=== PATIENT | male | born 1985 | race African-American/Black ===

== ENCOUNTER 2019-02-07 14:33 | Emergency (ER) | payer OTHER ==
[~2019-02-07] VITALS: Ht 175.3 cm; Wt 79.1 kg
[2019-02-07] MEDS ORDERED: PALI39DI IM (15:10)
[2019-02-07] MEDS ORDERED: BUSP5TAB20 PO (15:10)
[2019-02-07 16:08] VITALS: BP 106/76
== END 2019-02-07 16:43 | disposition home or self-care (01) ==
LOC: EMS 14:34
DX: Z02.89 Encounter for other administrative examinations (principal); F41.9 Anxiety disorder, unspecified; F20.9 Schizophrenia, unspecified; F17.210 Nicotine dependence, cigarettes, uncomplicated; F15.90 Other stimulant use, unspecified, uncomplicated; Z98.890 Other specified postprocedural states; Z79.899 Other long term (current) drug therapy

== ENCOUNTER 2019-08-09 13:41 | Inpatient (IN) | payer OTHER, MEDICAID ==
[~2019-08-09 13:41] MED LIST: BUSP5TAB20 PO; PALI39DI IM
[2019-08-09] MEDS ORDERED: HALOPERIDOL 5 MG TABLET PO PRN (14:15)
[2019-08-09] MEDS ORDERED: LORazepam 2 MG TABLET PO PRN (14:15)
[2019-08-09] MEDS ORDERED: ZOLPIDEM TARTRATE 10 MG TABLET PO PRN (14:15)
[2019-08-09 14:24] VITALS: BP 115/74
[2019-08-09] MEDS ORDERED: BUSP15 PO (14:35)
[2019-08-09] MEDS ORDERED: PALI819S IM (14:35)
[2019-08-09 16:09] VITALS: BP 117/83
[2019-08-10] MEDS ORDERED: LOPERAMIDE HCL 2 MG CAPSULE PO PRN (05:30)
[2019-08-10] MEDS ORDERED: PETROLATUM,WHITE 28 GM JELLY TP PRN (05:30)
[2019-08-10] MEDS ORDERED: CloNIDine HCL 0.1 MG TABLET PO PRN (05:30)
[2019-08-10] MEDS ORDERED: ONDANSETRON HCL 4 MG TABLET PO PRN (05:30)
[2019-08-10] MEDS ORDERED: BACITRACIN 28.4 GM OINTMENT TP PRN (05:30)
[2019-08-10] MEDS ORDERED: BENZOCAINE/MENTHOL LOZENGE MM PRN (05:30)
[2019-08-10] MEDS ORDERED: ACETAMINOPHEN 325 MG TABLET PO PRN (05:30)
[2019-08-10] MEDS ORDERED: MAGNESIUM HYDROXIDE SUSPENSION 30 ML UDCUP PO PRN (05:30)
[2019-08-10] MEDS ORDERED: MAG HYDROX/AL HYDROX/SIMETH ES 30 ML SUSPENSION UDCUP PO PRN (05:30)
[2019-08-10] MEDS ORDERED: IBUPROFEN 600 MG TABLET PO PRN (05:30)
[2019-08-10] MEDS ORDERED: ALBUTEROL SULFATE HFA 90 MCG/PUFF 8 GM INHALER IH PRN (05:30)
[2019-08-10 08:33] VITALS: BP 109/67
[2019-08-10] MEDS ORDERED: DOCUSATE SODIUM 100 MG CAPSULE PO SCH (09:00)
[2019-08-10] MEDS ORDERED: OMEPRAZOLE 20 MG CAPSULE PO SCH (09:00)
[2019-08-10 16:10] VITALS: BP 112/66
[2019-08-11 05:04] VITALS: BP 110/70
[2019-08-11 08:16] VITALS: BP 106/61
[2019-08-11 16:18] VITALS: BP 127/81
[2019-08-12 08:21] VITALS: BP 105/69
== END 2019-08-12 14:55 | disposition home or self-care (01) | DRG 885 ==
LOC: B2S 14:15
PROVIDERS: ADMIT Psychiatry & Neurology Psychiatry; ATTEND Psychiatry & Neurology Psychiatry
DX: F25.9 Schizoaffective disorder, unspecified (principal); F41.9 Anxiety disorder, unspecified; G47.00 Insomnia, unspecified; K59.00 Constipation, unspecified; Z72.0 Tobacco use; Z91.5 Personal history of self-harm; Z88.8 Allergy status to other drugs, medicaments and biological substances; Z56.0 Unemployment, unspecified; Z59.0 Homelessness

== ENCOUNTER 2020-03-31 07:51 | Inpatient (IN) | payer OTHER, MEDICAID ==
[~2020-03-31] VITALS: Ht 180.3 cm; Wt 69.4 kg
[~2020-03-31 07:51] MED LIST changes: -BUSP5TAB20 PO; -PALI39DI IM; +PALI819S IM
[2020-03-31] MEDS ORDERED: LORazepam 2 MG/ML VIAL IM ONE (08:30)
[2020-03-31] MEDS ORDERED: HALOPERIDOL LACTATE 5 MG/ML VIAL IM ONE (08:30)
[2020-03-31 10:25] LABS: COVID AG,FIA SOURCE NASOPHARYNGEAL
[2020-03-31] MEDS ORDERED: ZOLPIDEM TARTRATE 10 MG TABLET PO PRN (10:30)
[2020-03-31] MEDS ORDERED: LORazepam 2 MG TABLET PO PRN (10:30)
[2020-03-31] MEDS ORDERED: HALOPERIDOL 5 MG TABLET PO PRN (10:30)
[2020-03-31 11:13] LABS: BASOPHILS % (AUTO) 0.9 % (0.0-2.0); EOSINOPHILS % (AUTO) 0.1 % (1.0-6.0); HEMATOCRIT 38.8 % (41-53); HEMOGLOBIN 12.7 g/dL (13.5-17.5); LYMPHOCYTES # (AUTO) 2.2 K/uL (1.0-4.8); LYMPHOCYTES % (AUTO) 32.1 % (22.0-44.0); MEAN CORPUSCULAR HEMOGLOBIN 29.5 pg (26.0-34.0); MEAN CORPUSCULAR HGB CONC 32.8 G/dL (31.0-37.0); MEAN CORPUSCULAR VOLUME 90 fL (80-100); MONOCYTES # (AUTO) 0.6 K/uL (0.1-1.0); MONOCYTES % (AUTO) 9.5 % (2.0-9.0); NEUTROPHILS # (AUTO) 3.9 K/uL (1.8-7.7); NEUTROPHILS % (AUTO) 57.4 % (40.0-70.0); PLATELET COUNT (AUTO) 242 K/uL (150-450); RED BLOOD CELL COUNT(AUTO) 4.31 MIL/uL (4.50-5.90); RED CELL DISTRIBUTION WIDTH 12.7 % (11.5-14.5)
[2020-03-31 11:31] LABS: ANION GAP 9 mmol/L (8-16); CALCIUM, TOTAL 9.3 mg/dL (8.8-10.5); CARBON DIOXIDE 28 mmol/L (22-29); CHLORIDE 101 mmol/L (98-107); CREATININE 1.37 mg/dL (0.60-1.30); GLOMERULAR FILTR. RATE CALC > 60 mL/min (>60); GLUCOSE,RANDOM 84 mg/dL (70-110); POTASSIUM 3.8 mmol/L (3.5-5.1); SODIUM SERUM 138 mmol/L (136-145); UREA NITROGEN, BLOOD 10 mg/dL (7-18)
[2020-03-31 11:36] LABS: ALANINE AMINOTRANSFERASE 39 U/L (12-78); ALBUMIN 4.2 g/dL (3.4-5.0); ALKALINE PHOSPHATASE 83 U/L (46-116); ASPARTATE AMINOTRANSFERASE 60 U/L (15-37); BILIRUBIN,TOTAL 1.2 mg/dL (0.1-1.0); TOTAL PROTEIN, SERUM 7.9 g/dL (6.4-8.2)
[2020-03-31 12:51] VITALS: BP 103/69
[2020-03-31] MEDS ORDERED: INFLUENZA VIRUS VACCINE QVS 2020-21 (6MO+)/PF 60 MCG/0.5 ML SYRINGE IM ONE (13:45)
[2020-03-31] MEDS: OLANZapine 5 MG TABLET PO SCH (16:32)
[2020-04-01] MEDS ORDERED: GuaiFENesin/D-METHORPHAN [SUGAR-FREE] 200-20MG/10 ML SYRUP UDCUP PO PRN (08:00)
[2020-04-01] MEDS ORDERED: NICOTINE 14 MG/24 HOUR PATCH TD PRN (08:00)
[2020-04-01] MEDS ORDERED: MAG HYDROX/AL HYDROX/SIMETH ES 30 ML SUSPENSION UDCUP PO PRN (08:00)
[2020-04-01] MEDS ORDERED: PETROLATUM,WHITE 28 GM JELLY TP PRN (08:00)
[2020-04-01] MEDS ORDERED: DOCUSATE SODIUM 100 MG CAPSULE PO PRN (08:00)
[2020-04-01] MEDS ORDERED: ONDANSETRON HCL 4 MG TABLET PO PRN (08:00)
[2020-04-01] MEDS ORDERED: ACETAMINOPHEN 325 MG TABLET PO PRN (08:00)
[2020-04-01] MEDS ORDERED: MAGNESIUM HYDROXIDE SUSPENSION 30 ML UDCUP PO PRN (08:00)
[2020-04-01] MEDS ORDERED: CloNIDine HCL 0.1 MG TABLET PO PRN (08:00)
[2020-04-01] MEDS ORDERED: IBUPROFEN 400 MG TABLET PO PRN (08:00)
[2020-04-01] MEDS ORDERED: ALBUTEROL SULFATE HFA 90 MCG/PUFF 8 GM INHALER IH PRN (08:00)
[2020-04-01] MEDS ORDERED: LOPERAMIDE HCL 2 MG CAPSULE PO PRN (08:00)
[2020-04-01 08:46] VITALS: BP 122/61
[2020-04-01] MEDS: OLANZapine 5 MG TABLET PO SCH ×3 (09:30→17:26)
[2020-04-01 16:00] VITALS: BP 109/73
[2020-04-02 09:53] VITALS: BP 120/75
[2020-04-02] MEDS: OLANZapine 5 MG TABLET PO SCH ×3 (10:41→17:00)
[2020-04-02 16:00] VITALS: BP 115/60
[2020-04-03 08:00] VITALS: BP 109/62
[2020-04-03] MEDS: OLANZapine 5 MG TABLET PO SCH ×2 (10:35→16:17)
[2020-04-03 17:56] VITALS: BP 102/60
[2020-04-03] MEDS: RisperiDONE 2 MG TABLET PO SCH (21:00)
[2020-04-04 08:00] VITALS: BP 95/61
[2020-04-04] MEDS: RisperiDONE 2 MG TABLET PO SCH ×2 (09:00→20:51)
[2020-04-04 16:00] VITALS: BP 121/68
[2020-04-05 07:35] LABS: CHOL/HDL RATIO 3.4 (4.2-7.3)
[2020-04-05 08:00] VITALS: BP 106/57
[2020-04-05] MEDS: RisperiDONE 2 MG TABLET PO SCH ×2 (08:59→20:18)
[2020-04-05 16:10] VITALS: BP 134/77
[2020-04-06 08:00] VITALS: BP 107/52
[2020-04-06] MEDS: RisperiDONE 2 MG TABLET PO SCH (10:27)
[2020-04-06] MEDS ORDERED: RISP2TAB45 PO (13:54)
== END 2020-04-06 14:40 | disposition home or self-care (01) | DRG 885 ==
LOC: EMS 07:52 → 3EI 11:47 → EMS 12:29
PROVIDERS: ADMIT Psychiatry & Neurology Psychiatry; ATTEND Psychiatry & Neurology Psychiatry
DX: F20.0 Paranoid schizophrenia (principal); N17.9 Acute kidney failure, unspecified; R17 Unspecified jaundice; R45.851 Suicidal ideations; D72.829 Elevated white blood cell count, unspecified; E66.9 Obesity, unspecified; E78.5 Hyperlipidemia, unspecified; F15.10 Other stimulant abuse, uncomplicated; F17.210 Nicotine dependence, cigarettes, uncomplicated; D64.9 Anemia, unspecified; R73.9 Hyperglycemia, unspecified; Z20.828 Contact with and (suspected) exposure to other viral communicable diseases; Z28.21 Immunization not carried out because of patient refusal; Z68.21 Body mass index [BMI] 21.0-21.9, adult; Z79.899 Other long term (current) drug therapy
CPT/HCPCS: 87426; 99291; G0480; J1630; J2060

== ENCOUNTER 2020-06-24 19:44 | Emergency (ER) | payer OTHER ==
[~2020-06-24] VITALS: Ht 175.3 cm; Wt 74.5 kg
[~2020-06-24 19:44] MED LIST changes: -PALI819S IM; +RISP2TAB45 PO
[2020-06-24 19:56] VITALS: BP 115/67
== END 2020-06-24 20:35 | disposition left against medical advice (07) ==
LOC: EMS 19:46
DX: R44.3 Hallucinations, unspecified (principal); Z53.21 Procedure and treatment not carried out due to patient leaving prior to being seen by health care provider

== ENCOUNTER 2024-03-30 15:25 | Emergency (ER) | payer MEDICARE, MEDICAID ==
[~2024-03-30] VITALS: Ht 177.8 cm; Wt 68.2 kg
[2024-03-30 16:34] LABS: BASOPHILS % (AUTO) 0.9 % (0.0-2.0); HEMATOCRIT 34.6 % (41-53); HEMOGLOBIN 11.4 g/dL (13.5-17.5); LYMPHOCYTES # (AUTO) 3.2 K/uL (1.0-4.8); LYMPHOCYTES % (AUTO) 51.9 % (22.0-44.0); MEAN CORPUSCULAR HEMOGLOBIN 30.4 pg (26.0-34.0); MEAN CORPUSCULAR VOLUME 92 fL (80-100); MONOCYTES # (AUTO) 0.5 K/uL (0.1-1.0); MONOCYTES % (AUTO) 8.6 % (2.0-9.0); NEUTROPHILS # (AUTO) 2.3 K/uL (1.8-7.7); NEUTROPHILS % (AUTO) 37.6 % (40.0-70.0); PLATELET COUNT (AUTO) 221 K/uL (150-450); RED BLOOD CELL COUNT(AUTO) 3.76 MIL/uL (4.50-5.90); RED CELL DISTRIBUTION WIDTH 13.1 % (11.5-14.5); WHITE BLOOD COUNT (AUTO) 6.2 K/uL (4.5-11.0)
[2024-03-30 16:37] LABS: AMPHET/METH SCREEN,URINE NEGATIVE (NEGATIVE); BARBITURATE SCREEN, URINE NEGATIVE (NEGATIVE); BENZODIAZEPINES SCREEN,URINE NEGATIVE (NEGATIVE); CANNABINOID SCREEN,URINE NEGATIVE (NEGATIVE); COCAINE SCREEN,URINE NEGATIVE (NEGATIVE); METHADONE SCREEN, URINE NEGATIVE (NEGATIVE); OPIATE SCREEN,URINE NEGATIVE (NEGATIVE); PHENCYCLIDINE SCREEN,URINE NEGATIVE (NEGATIVE)
[2024-03-30 16:39] LABS: ALCOHOL, URINE DRUG SCREEN NEGATIVE (NEGATIVE)
[2024-03-30 16:41] LABS: COVID AG,FIA SOURCE NASAL SWAB
[2024-03-30 16:43] LABS: ANION GAP 6 mmol/L (8-16); CALCIUM, TOTAL 8.5 mg/dL (8.8-10.5); CARBON DIOXIDE 31 mmol/L (22-29); CHLORIDE 105 mmol/L (98-107); CREATININE 1.25 mg/dL (0.60-1.30); GLOMERULAR FILTR. RATE CALC > 60 mL/min (>60); GLUCOSE,RANDOM 62 mg/dL (70-110); POTASSIUM 3.9 mmol/L (3.5-5.1); SODIUM SERUM 142 mmol/L (136-145); UREA NITROGEN, BLOOD 11 mg/dL (7-18)
[2024-03-30 16:53] LABS: ALCOHOL, BLOOD (SERUM) < 3 mg/dL (0-10)
[2024-03-30 17:05] LABS: SARS-COV2 (COVID) ANTIGEN,FIA Negative (Negative)
[2024-03-31 02:29] VITALS: BP 128/78; PULSE 80; RESP 16; TEMP 97.8; O2SAT 100
== END 2024-03-31 05:34 | disposition home or self-care (01) ==
LOC: EMS 15:25
DX: F20.9 Schizophrenia, unspecified (principal); F41.9 Anxiety disorder, unspecified; F17.210 Nicotine dependence, cigarettes, uncomplicated; F15.90 Other stimulant use, unspecified, uncomplicated; Z88.8 Allergy status to other drugs, medicaments and biological substances; Z20.822 Contact with and (suspected) exposure to COVID-19; Y93.89 Activity, other specified; Y92.480 Sidewalk as the place of occurrence of the external cause; Y99.8 Other external cause status
CPT/HCPCS: 99283; 87426; 80048; 85025; 36415; 80307; G0480; 99284

== ENCOUNTER 2024-04-03 12:26 | Emergency (ER) | payer MEDICARE, MEDICAID | END 2024-04-03 13:21 | disposition left against medical advice (07) | LOC: EMS 12:26 | DX: R42 Dizziness and giddiness (principal); Z53.21 Procedure and treatment not carried out due to patient leaving prior to being seen by health care provider ==